=== PATIENT | female | born 1975 | race Caucasian/White ===

== ENCOUNTER 2020-10-13 09:04 | Emergency (ER) | payer SELFPAY ==
[2020-10-13 09:12] VITALS: PULSE 86; RESP 18; TEMP 37; O2SAT 97; BMI 25.9
[2020-10-13 09:22] VITALS: BP 137/81; PULSE 81; TEMP 36.9; O2SAT 97
--- NOTE | 2020-10-13 09:31 | ECG_ITS ---
[facility] Test Date: 2020-10-13 Pat Name: Tiana Toney Department: Room: Gender: Female Manager Leadership Development: : 1975 Requested By: Danial Mondragon Order Number: [id number] Reading MD: BONITA BAUER Measurements Intervals [place] Rate: 78 P: 50 WA: 87 QRS: 71 QRSD: 114 T: 63 QT: 403 QTc: 460 Interpretive Statements SINUS RHYTHM WITH SHORT WA INTERVAL MODERATE INTRAVENTRICULAR CONDUCTION DELAY [110+ ms QRS DURATION] NONSPECIFIC T-WAVE ABNORMALITY No previous ECG available for comparison Electronically Signed On 10-14-2020 18:50:44 CDT by BONITA BAUER [id number] f
--- NOTE | 2020-10-13 09:31 | XRR_ITS ---
PROCEDURE INFORMATION: Exam: XR Chest Exam date and time: 10/13/2020 9:31 AM Age: 45 years old Clinical indication: Pain; Chest pressure; Additional info: Chest pain, h/o hysterectomy TECHNIQUE: Imaging protocol: XR of the chest. Views: 1 view. COMPARISON: CR Chest 2 views* [id number] 04/29/2018 11:25 AM FINDINGS: Lungs: Unremarkable. No consolidation. Pleural spaces: Unremarkable. No pleural effusion. No pneumothorax. Heart/Mediastinum: Unremarkable. No cardiomegaly. Bones/joints: Unremarkable. XR/XR chest 1V portable [id number] IMPRESSION: No acute findings.
--- NOTE | 2020-10-13 09:34 | W.ED.DIZZY ---
HPI - Dizziness General: Chief Complaint: Dizziness Stated Complaint: weak, heart racing, light headed. Time Seen by Provider: 10/13/20 09:12 Source: patient Mode of arrival: ambulatory Limitations: no limitations History of Present Illness: HPI Narrative: Patient with complaints of generalized fatigue, chest pain, palpitations and generalized weakness at work this morning. She denies any fever or chills. She denies any dysuria. She denies any abdominal pain. She denies any syncope. No cough. Denies any nausea vomiting or diarrhea. MD elicited complaint: dizziness Timing: gradual onset Severity: mild Description: lightheadedness History of similar symptoms: No Exacerbating factors: nothing Relieving factors: nothing Associated symptoms: Reports no associated symptoms, abnormal vaginal bleeding (Patient states she did have a little bit of vaginal spotting this morning. ), chest pain, malaise and palpitations; Denies chills, fevers/chills, headache(s), nausea, short of breath, syncope or vomiting Associated neuro symptoms: Reports no associated symptoms Review of Systems Const: Reports: fatigue and malaise; Denies: fever(s) or chills Eyes: Denies: change in vision ENMT: Denies: throat pain Card: Reports: chest pain and palpitations; Denies: syncope Resp: Denies: dyspnea or wheezing GI: Denies: abdominal pain, nausea or vomiting : Denies: flank pain Musc: Denies: neck pain or back pain Skin/Breast: Denies: rash or pruritus Neuro: Denies: headache(s) Psych: Denies: anxiety Amaury/Lymph: Denies: enlarged lymph nodes Physical Exam Const: COMMON NORMALS: no acute distress, patient oriented x3, no limitations, healthy appearing, alert and well nourished GENERAL APPEARANCE: cooperative and comfortable HENMT: COMMON NORMALS: normocephalic and atraumatic HEAD & SCALP: normocephalic and atraumatic Eye: COMMON NORMALS: EOMs intact bilaterally Neck/C-Spine: COMMON NORMALS: full ROM, no lymphadenopathy, supple and no JVD Lymph: LYMPHATIC: no lymphadenopathy noted Chest: COMMONS NORMALS: normal inspection of the chest and normal palpation of entire chest wall Resp: COMMON NORMALS: normal respiratory effort, No retractions, No use of accessory muscles and clear to auscultation bilaterally AUSCULTATION: clear to auscultation bilaterally Cardio: COMMON NORMALS: no JVD, regular rate, regular rhythm and Peripheral pulses 2+ throughout RATE: regular rate RHYTHM: regular rhythm PERIPHERAL PULSES: Peripheral pulses 2+ throughout GI: COMMON NORMALS: Normal to inspection, nondistended, normoactive bowel sounds present, Soft to palpation, non-tender and No hepatosplenomegaly present PALPATION: Yes Soft to palpation and Yes No hepatosplenomegaly present : COMMON NORMALS: Yes no CVA tenderness BLADDER/KIDNEY EXAM: Yes no CVA tenderness Back/Pelvis: COMMON NORMALS: no CVA tenderness Extremity: COMMON NORMALS: normal to inspection and full ROM Neuro: COMMON NORMALS: patient oriented x3, CN's II-XII intact bilaterally, moves all extremities, no focal motor deficits and no sensory deficits noted SENSORIUM/ORIENTATION: Yes alert Psych: COMMON NORMALS: mental status grossly normal, Normal thought process present, cooperative, normal affect and speech normal SPEECH: Yes normal speech THOUGHT PROCESS: Normal thought process present Skin: COMMON NORMALS: no rashes or lesions noted and no wounds GENERAL SKIN EXAM: no rashes or lesions noted Course Vital Signs: Vital signs: Vital Signs Temperature 98.4 F 10/13/20 09:22 Pulse Rate 78 10/13/20 09:37 Respiratory Rate 18 10/13/20 09:12 Blood Pressure 111/74 10/13/20 09:37 Pulse Oximetry 97 10/13/20 09:37 MDM - Dizziness Lab Data: Attestation: I reviewed the patient's lab results. Labs: Lab Results 10/13/20 10/13/20 10/13/20 Range/Units 09:48 10:26 10:26 WBC 9.5 (4.0-10.0) 10^3/ uL RBC 4.26 (4.1-5.3) 10^6/u L Hgb 13.6 (11.5-15.3) g/dL Hct 41.1 (37.0-47.0) % MCV 96.5 (81-99) fL MCH 31.9 (28.0-34.0) pg MCHC 33.1 (30.0-36.0) g/dL RDW 13.4 (12.1-15.1) % Plt Count 255 (130-400) 10^3/c mm MPV 10.7 H (7.4-10.4) fL Neut % (Auto) 62.3 % Lymph % (Auto) 30.3 % [place] % (Auto) 5.6 % Eos % (Auto) 1.2 % Baso % (Auto) 0.4 % Neut # (Auto) 5.89 (1.8-7.7) 10^3/u L Lymph # (Auto) 2.9 (0.8-4.8) 10^3/u L [place] # (Auto) 0.5 (0.2-0.9) 10^3/u L Eos # (Auto) 0.1 (0.0-0.8) 10^3/u L Baso # (Auto) 0.0 (0.0-0.1) 10^3/u L Nucleated RBC % (a uto) 0 % Nucleated RBCs # 0.0 /100WBC Sodium 142 (136-145) mmol/L Potassium 3.9 (3.5-5.1) mmol/L Chloride 106 (98-107) mmol/L Carbon Dioxide 25 (22-29) mmol/L Anion Gap 14.9 (5-19) BUN 7 (6-20) mg/dL Creatinine 0.8 (0.5-0.9) mg/dL GFR Calculation 67.4 L (90-130) mL/min Glucose 79 (65-115) mg/dL Calculated Osmolal ity 291 (285-295) mOsm/k g Calcium 9.0 (8.5-10.5) mg/dL Total Bilirubin 0.4 (0.15-1.2) mg/dL AST 13 (0-32) U/L ALT 10 (0-33) U/L Alkaline Phosphata se 71 (35-105) IU/L Troponin T Baselin e (0-10) ng/L Total Protein 6.8 (6.6-8.7) g/dL Albumin 4.3 (3.5-5.2) g/dL Globulin 2.2 (1.3-4.6) g/dL Urine Color (Yellow) Urine Appearance (CLEAR) Urine pH (5-7) Ur Specific Gravit y (1.005-1.030) Urine Protein (Negative) Urine Glucose (UA) (Normal) Urine Ketones (Negative) Urine Blood (Negative) Urine Nitrate (Negative) Urine Bilirubin (Negative) Urine Urobilinogen (Negative) mg/dL Ur Leukocyte Aida ase (Negative) Urine RBC (0-2) /hpf Urine WBC (0-5) /hpf Ur Squamous Epith Cells (0-5) /hpf Amorphous Sediment Urine Bacteria (NONE) /hpf SARS-CoV-2 Ag (Rap id) Negative (Negative) 10/13/20 10/13/20 Range/Units 10:26 10:37 WBC (4.0-10.0) 10^3/ uL RBC (4.1-5.3) 10^6/u L Hgb (11.5-15.3) g/dL Hct (37.0-47.0) % MCV (81-99) fL MCH (28.0-34.0) pg MCHC (30.0-36.0) g/dL RDW (12.1-15.1) % Plt Count (130-400) 10^3/c mm MPV (7.4-10.4) fL Neut % (Auto) % Lymph % (Auto) % [place] % (Auto) % Eos % (Auto) % Baso % (Auto) % Neut # (Auto) (1.8-7.7) 10^3/u L Lymph # (Auto) (0.8-4.8) 10^3/u L [place] # (Auto) (0.2-0.9) 10^3/u L Eos # (Auto) (0.0-0.8) 10^3/u L Baso # (Auto) (0.0-0.1) 10^3/u L Nucleated RBC % (a uto) % Nucleated RBCs # /100WBC Sodium (136-145) mmol/L Potassium (3.5-5.1) mmol/L Chloride (98-107) mmol/L Carbon Dioxide (22-29) mmol/L Anion Gap (5-19) BUN (6-20) mg/dL Creatinine (0.5-0.9) mg/dL GFR Calculation (90-130) mL/min Glucose (65-115) mg/dL Calculated Osmolal ity (285-295) mOsm/k g Calcium (8.5-10.5) mg/dL Total Bilirubin (0.15-1.2) mg/dL AST (0-32) U/L ALT (0-33) U/L Alkaline Phosphata se (35-105) IU/L Troponin T Baselin e 6 (0-10) ng/L Total Protein (6.6-8.7) g/dL Albumin (3.5-5.2) g/dL Globulin (1.3-4.6) g/dL Urine Color Yellow (Yellow) Urine Appearance Clear (CLEAR) Urine pH 7 (5-7) Ur Specific Gravit y 1.005 (1.005-1.030) Urine Protein Neg (Negative) Urine Glucose (UA) Norm (Normal) Urine Ketones Negative (Negative) Urine Blood 2+ H (Negative) Urine Nitrate Negative (Negative) Urine Bilirubin Neg (Negative) Urine Urobilinogen Norm (Negative) mg/dL Ur Leukocyte Aida ase Negative (Negative) Urine RBC None (0-2) /hpf Urine WBC None (0-5) /hpf Ur Squamous Epith Cells 0-4 H (0-5) /hpf Amorphous Sediment Not Reportable Urine Bacteria Trace (NONE) /hpf SARS-CoV-2 Ag (Rap id) (Negative) Imaging Data^: CXR: Radiologist's impression: Patient: Renato Toney #: [id number]: 1975Acct#:[id number]/Sex: 45 / FADM Date: 10/13/20Loc: ERRoom/Bed:Attending Dr: Ordering Provider/Ordering MD: Danial Rowe MD Date of Service: 10/13/20 Procedure(s): XR chest 1V portable [id number] Accession Number(s): [id number] Report Number: [id number] PROCEDURE INFORMATION: Exam: XR Chest Exam date and time: 10/13/2020 9:31 AM Age: 45 years old Clinical indication: Pain; Chest pressure; Additional info: Chest pain, h/o hysterectomy TECHNIQUE: Imaging protocol: XR of the chest. Views: 1 view. COMPARISON: CR Chest 2 views* [id number] 04/29/2018 11:25 AM FINDINGS: Lungs: Unremarkable. No consolidation. Pleural spaces: Unremarkable. No pleural effusion. No pneumothorax. Heart/Mediastinum: Unremarkable. No cardiomegaly. Bones/joints: Unremarkable. XR/XR chest 1V portable [id number] IMPRESSION: No acute findings. Dictated By:Chucky Garner By:Chucky Garner Date/Time:10/13/20 1109 EKG Data^: EKG 1: Attestation: I personally reviewed and interpreted this EKG as follows: EKG interpretation date: 10/13/20 EKG interpretation time: 09:29 Prior EKG tracings: not available for review Interpretation: Normal sinus rhythm heart rate 78. Normal P waves, normal HI interval, normal QRS, normal ST segment, normal T waves. Normal QT interval. Normal axis. Impression normal EKG. Discharge Plan Discharge Patient Disposition: Home Clinical Impression: Dizziness, Trichomonal vaginitis Fatigue Qualifiers: Fatigue type: unspecified Qualified Code(s): R53.83 - Other fatigue UTI (urinary tract infection) Qualifiers: Urinary tract infection type: site unspecified Hematuria presence: with hematuria Qualified Code(s): N39.0 - Urinary tract infection, site not specified Condition: Stable Prescriptions: New metronidazole 500 mg tablet 500 mg PO BID 7 Days Qty: 14 RF: 0 cephalexin 500 mg capsule 500 mg PO QID 7 Days Qty: 28 RF: 0 No Action Euthyrox 25 mcg tablet 25 mcg PO DAILY RF: 0 sertraline 50 mg tablet 50 mg PO DAILY RF: 0 Discharge Orders: Discharge ED (Routine); Ordered 10/13/20 Ordered By: Danial Rowe Discharge Diet: Usual diet Discharge Activity: Resume usual activity Patient Instructions: Urinary Tract Infection in Women (ED), Fatigue (ED), Trichomoniasis - Female Activity Restrictions/Additional Instructions: Start cephalexin antibiotic and approximately 6 hours after leaving here. Take metronidazole antibiotic prior to bedtime tonight. Drink plenty of fluids. Do not drink any alcohol while on the metronidazole antibiotic as this will make you very nauseated. Rest. Coding Level of Care Code ED Chemical Equipment Repairer for Robbie Fwd Exam Comprehensive
[2020-10-13 09:37] VITALS: BP 111/74; PULSE 78; O2SAT 97
[2020-10-13 10:15] LABS: SARS Covid-2 Antigen Negative (Negative)
[2020-10-13] MEDS: aspirin 81 mg Chew Tablet 324 MG PO (10:30)
[2020-10-13 10:34] LABS: Basophils % 0.4 %; Eosinophils # 0.1 10^3/uL (0.0-0.8); Eosinophils % 1.2 %; Hematocrit 41.1 % (37.0-47.0); Hemoglobin 13.6 g/dL (11.5-15.3); Lymphocytes # 2.9 10^3/uL (0.8-4.8); Lymphocytes % 30.3 %; Mean Corpuscular HGB Conc 33.1 g/dL (30.0-36.0); Mean Corpuscular Hemoglobin 31.9 pg (28.0-34.0); Mean Corpuscular Volume 96.5 fL (81-99); Mean Platelet Volume 10.7 fL (7.4-10.4); Monocytes # 0.5 10^3/uL (0.2-0.9); Monocytes % 5.6 %; Neutrophils # 5.89 10^3/uL (1.8-7.7); Neutrophils % 62.3 %; Nucleated Red Blood Cells % 0 %; Platelet Count 255 10^3/cmm (130-400); Red Blood Count 4.26 10^6/uL (4.1-5.3); Red Cell Distribution Width 13.4 % (12.1-15.1); White Blood Count 9.5 10^3/uL (4.0-10.0)
[2020-10-13 10:52] LABS: Troponin(5th) Baseline 6 ng/L (0-10)
[2020-10-13 10:56] LABS: Albumin Level 4.3 g/dL (3.5-5.2); Alkaline Phosphatase 71 IU/L (35-105); Blood Urea Nitrogen 7 mg/dL (6-20); Carbon Dioxide 25 mmol/L (22-29); Chloride 106 mmol/L (98-107); Globulin 2.2 g/dL (1.3-4.6); Glucose 79 mg/dL (65-115); Osmolality Calculated 291 mOsm/kg (285-295); Sodium 142 mmol/L (136-145); Total Bilirubin 0.4 mg/dL (0.15-1.2)
[2020-10-13 11:14] LABS: Alanine Aminotransferase 10 U/L (0-33); Anion Gap 14.9 (5-19); Aspartate Amino Transferase 13 U/L (0-32); Glomerular Filtration Rate 67.4 mL/min (90-130); Potassium 3.9 mmol/L (3.5-5.1); Total Protein 6.8 g/dL (6.6-8.7)
[2020-10-13 11:15] LABS: Add Urine Culture? No; Add Urine Microscopic? YES; Bacteria Urine TRACE /hpf; Bilirubin Urine Neg (Negative); Blood Urine 2+ (Negative); Glucose Urine UA Norm (Normal); Ketones Urine Negative (Negative); Leukocyte Esterase Urine Negative (Negative); Nitrate Urine Negative (Negative); Protein Urine Neg (Negative); Specific Gravity, Urine 1.005 (1.005-1.030); Squamous Epithelial Cell Urine 0-4 /hpf (0-5); Urine Appearance Clear (CLEAR); Urine Color Yellow (Yellow); Urobilinogen Urine Norm (Negative); pH Urine 7 (5-7)
[2020-10-13] MEDS: metroNIDAZOLE 500 MG Tablet PO (11:33)
[2020-10-13] MEDS: cephALEXin 500 mg Capsule PO (11:34)
[2020-10-13 11:47] VITALS: BP 119/77; PULSE 69; RESP 18; O2SAT 97
== END 2020-10-13 11:48 | disposition home or self-care (01) ==
PROVIDERS: Emergency Provider Family Medicine
DX: R42 Dizziness and giddiness (principal); R53.83 Other fatigue; N39.0 Urinary tract infection, site not specified; A59.01 Trichomonal vulvovaginitis; Z20.822 Contact with and (suspected) exposure to COVID-19
CPT/HCPCS: 71045; 80053; 81001; 84484; 85025; 87426; 93005; 99284

== ENCOUNTER 2020-12-28 12:26 | Emergency (ER) | payer OTHER, SELFPAY ==
[2020-12-28 13:02] VITALS: BP 100/42; PULSE 81; RESP 16; TEMP 36.8; O2SAT 98; BMI 24.2
--- NOTE | 2020-12-28 13:44 | ED_ITS ---
HPI - COVID General: Chief Complaint: COVID symptoms Stated Complaint: Fever, body aches Time Seen by Provider: 12/28/20 13:44 Triage information: Has fever, cough or shortness of breath . No known COVID + exposure last 14 days History of Present Illness: HPI Narrative: Ms. Reynolds is a 45-year-old lady with reported history of hypothyroidism and elevated serum creatinine who presents emergency department due to Covid-like symptoms. Symptom onset was 3 or 4 days ago and subacute. She endorses cough, shortness of breath, generalized malaise, muscle aches, pains, and increased fatigue. She attempted to get a Covid test at [facility] however they were closed which prompted her to come to the emergency department. Overall the course of symptoms has been worsening. The intensity is moderate to severe. She denies known sick contacts. No other specific changes in health, exacerbating, or alleviating factors. COVID Results: SARS-CoV-2 Antigen (Rapid) Positive (Negative) H 12/28/20 14:45 12/28/20 SARS-CoV-2 RNA (RT-PCR) Pending 12/28/20 14:45 12/28/20 Review of Systems General: Reports: 10 or more systems reviewed and unremarkable except in HPI and below Physical Exam Narrative: EXAM NARRATIVE: GENERAL/CONSTITUTIONAL -mildly ill-appearing. No acute distress. Eyes - PERRL, no conjunctival injection ENMT - Atraumatic external nose and ears. Moist mucous membranes NECK - supple. trachea midline CARDIOVASCULAR - regular rate and rhythm. Peripheral pulses 2+ and equal RESPIRATORY -coarse to auscultation bilaterally. No retractions or accessory muscle use. ABDOMEN/GI - Nontender/Nondistended. No tenderness to percussion or evidence of peritonitis MSK - Extremities without obvious deformity. Generalized myalgias to p alpation. SKIN - Warm, Dry NEURO - alert and appropriately oriented. strength and sensation intact. Moves all extremities equally. PSYCH - Appropriate mood and affect Course ED course: - Patient was seen and evaluated by me at bedside - Patient placed on cardiac monitors, IV access obtained - Initial evaluation notable for mildly ill appearance, no acute distress. -Symptom treatment ordered - Labs notable for positive Covid, negative procalcitonin - Imaging notable for no lobar consolidation - Upon serial reexamination after treatment the patient was improved - Based on patient history, evaluation, labs, and imaging as interpreted the most likely cause of the patient's condition is COVID-19 - The results of ED evaluation were discussed with the patient including prescriptions and/or symptomatic cares (if applicable) including appropriate and responsible use, followup plan, and return precautions. The patient verbalized understanding and felt safe for discharge. - Patient discharged in satisfactory condition. Vital Signs: Vital signs: Vital Signs Temperature 98.3 F 12/28/20 13:02 Pulse Rate 71 12/28/20 16:47 Respiratory Rate 17 12/28/20 16:47 Blood Pressure 115/59 12/28/20 16:47 Pulse Oximetry 99 12/28/20 16:47 MDM - COVID Medical Records: Attestation: I reviewed the patient's medical records. Lab Data: Attestation: I reviewed the patient's lab results. Labs: Lab Results 12/28/20 12/28/20 12/28/20 Range/Units 14:45 15:15 15:15 WBC 4.5 (4.0-10.0) 10^3/ uL RBC 4.25 (4.1-5.3) 10^6/u L Hgb 14.0 (11.5-15.3) g/dL Hct 42.1 (37.0-47.0) % MCV 99.1 H (81-99) fl MCH 32.9 (28.0-34.0) pg MCHC 33.3 (30.0-36.0) g/dL RDW 13.9 (12.1-15.1) % Plt Count 150 (130-400) 10^3/c mm MPV 11.5 H (7.4-10.4) fL Neut % (Auto) 59.0 % Lymph % (Auto) 28.9 % [place] % (Auto) 10.8 % Eos % (Auto) 0.7 % Baso % (Auto) 0.4 % Neut # (Auto) 2.67 (1.8-7.7) 10^3/u L Lymph # (Auto) 1.3 (0.8-4.8) 10^3/u L [place] # (Auto) 0.5 (0.2-0.9) 10^3/u L Eos # (Auto) 0.0 (0.0-0.8) 10^3/u L Baso # (Auto) 0.0 (0.0-0.1) 10^3/u L Nucleated RBC % (a uto) 0 % Nucleated RBCs # 0.0 /100WBC Sodium 139 (136-145) mmol/L Potassium 3.8 (3.5-5.1) mmol/L Chloride 102 (98-107) mmol/L Carbon Dioxide 25 (22-29) mmol/L Anion Gap 15.8 (5-19) BUN 7 (6-20) mg/dL Creatinine 0.7 (0.5-0.9) mg/dL GFR Calculation 90.1 (90-130) mL/min Glucose 82 (65-115) mg/dL Calculated Osmolal ity 285 (285-295) mOsm/k g Lactic Acid (0.5-2.2) mmol/L Calcium 8.7 (8.5-10.5) mg/dL Total Bilirubin 0.2 (0.15-1.2) mg/dL AST 18 (0-32) U/L ALT 11 (0-33) U/L Alkaline Phosphata se 64 (35-105) IU/L C-Reactive Protein 1.1 (0.0-4.9) mg/L Total Protein 6.7 (6.6-8.7) g/dL Albumin 4.2 (3.5-5.2) g/dL Globulin 2.5 (1.3-4.6) g/dL Procalcitonin 0.04 (0-0.5) ng/mL TSH 2.69 (0.27-4.20) uIU/ mL Urine Color (Yellow) Urine Appearance (CLEAR) Urine pH (5-7) Ur Specific Gravit y (1.005-1.030) Urine Protein (Negative) Urine Glucose (UA) (Normal) Urine Ketones (Negative) Urine Blood (Negative) Urine Nitrate (Negative) Urine Bilirubin (Negative) Urine Urobilinogen (Negative) mg/dL Ur Leukocyte Aida ase (Negative) Urine RBC (0-2) /hpf Urine WBC (0-5) /hpf Ur Squamous Epith Cells (0-5) /hpf Amorphous Sediment Urine Bacteria (NONE) /hpf SARS-CoV-2 Ag (Rap id) Positive H (Negative) 12/28/20 12/28/20 Range/Units 15:15 15:20 WBC (4.0-10.0) 10^3/ uL RBC (4.1-5.3) 10^6/u L Hgb (11.5-15.3) g/dL Hct (37.0-47.0) % MCV (81-99) fl MCH (28.0-34.0) pg MCHC (30.0-36.0) g/dL RDW (12.1-15.1) % Plt Count (130-400) 10^3/c mm MPV (7.4-10.4) fL Neut % (Auto) % Lymph % (Auto) % [place] % (Auto) % Eos % (Auto) % Baso % (Auto) % Neut # (Auto) (1.8-7.7) 10^3/u L Lymph # (Auto) (0.8-4.8) 10^3/u L [place] # (Auto) (0.2-0.9) 10^3/u L Eos # (Auto) (0.0-0.8) 10^3/u L Baso # (Auto) (0.0-0.1) 10^3/u L Nucleated RBC % (a uto) % Nucleated RBCs # /100WBC Sodium (136-145) mmol/L Potassium (3.5-5.1) mmol/L Chloride (98-107) mmol/L Carbon Dioxide (22-29) mmol/L Anion Gap (5-19) BUN (6-20) mg/dL Creatinine (0.5-0.9) mg/dL GFR Calculation (90-130) mL/min Glucose (65-115) mg/dL Calculated Osmolal ity (285-295) mOsm/k g Lactic Acid 0.6 (0.5-2.2) mmol/L Calcium (8.5-10.5) mg/dL Total Bilirubin (0.15-1.2) mg/dL AST (0-32) U/L ALT (0-33) U/L Alkaline Phosphata se (35-105) IU/L C-Reactive Protein (0.0-4.9) mg/L Total Protein (6.6-8.7) g/dL Albumin (3.5-5.2) g/dL Globulin (1.3-4.6) g/dL Procalcitonin (0-0.5) ng/mL TSH (0.27-4.20) uIU/ mL Urine Color Straw (Yellow) Urine Appearance Clear (CLEAR) Urine pH 5 (5-7) Ur Specific Gravit y 1.010 (1.005-1.030) Urine Protein Neg (Negative) Urine Glucose (UA) Norm (Normal) Urine Ketones Negative (Negative) Urine Blood 2+ H (Negative) Urine Nitrate Negative (Negative) Urine Bilirubin Neg (Negative) Urine Urobilinogen Norm (Negative) mg/dL Ur Leukocyte Aida ase Negative (Negative) Urine RBC 0-4 H (0-2) /hpf Urine WBC 0-4 H (0-5) /hpf Ur Squamous Epith Cells 0-4 H (0-5) /hpf Amorphous Sediment Not Reportable Urine Bacteria 1+ H (NONE) /hpf SARS-CoV-2 Ag (Rap id) (Negative) EKG Data: EKG 1: Attestation: I personally reviewed and interpreted this EKG as follows: EKG interpretation date: 12/28/20 EKG interpretation time: 14:50 Interpretation: Twelve-lead EKG shows a regular sinus rhythm at a rate of 71. [place] interval 146, QRS duration 97, QTc 427. Normal axis. Interpretation: Sinus rhythm COVID Results: SARS-CoV-2 Antigen (Rapid) Positive (Negative) H 12/28/20 14:45 12/28/20 SARS-CoV-2 RNA (RT-PCR) Pending 12/28/20 14:45 12/28/20 Discharge Plan Discharge Patient Disposition: Home Clinical Impression: COVID-19 Condition: Stable Prescriptions: No Action Euthyrox 25 mcg tablet 25 mcg PO DAILY RF: 0 sertraline 50 mg tablet 50 mg PO DAILY RF: 0 Discharge Orders: Discharge ED (Routine); Ordered 12/28/20 Ordered By: Mu Medina Other Ambulatory Orders: Request for [facility] (Routine) Timeframe: 1 Day Facility: [facility] - Location[facility] Ordered By: Mu Medina Discharge Diet: Usual diet Discharge Activity: Resume usual activity Patient Instructions: Viral Pneumonia (ED) Activity Restrictions/Additional Instructions: Thank you for visiting the emergency department. You were seen and evaluated for Covid-like symptoms. You are Covid positive. Please ensure that you are staying hydrated. You may use [id number] medications however please ensure that you are following the recommended daily dosage and please keep in mind that many namebrand medications contain the same active ingredients. Please self quarantine. Please return to the emergency department for reasons discussed or anything else that you are concerned about and feel needs emergency department evaluation. Coding Level of Care Code ED Ladies Locker Room Attendant for Robbie Dobbins
--- NOTE | 2020-12-28 14:11 | ECG_ITS ---
Test Date: 2020-12-28 Pat Name: Tiana Toney Department: Room: Gender: Female Customs And Border Protection Inspector: : 1975 Requested By: Mu Medina Order Number: [id number] Hemal MD: Milo Barton M.D. Measurements Intervals [place] Rate: 71 P: 68 OK: 146 QRS: 76 QRSD: 97 T: 69 QT: 404 QTc: 441 Interpretive Statements SINUS RHYTHM Compared to ECG 10/13/2020 09:28:15 Short OK interval no longer present Intraventricular conduction delay no longer present T-wave abnormality no longer present Electronically Signed On 12-29-2020 18:10:15 CDT by Milo Barton M.D. [id number]
--- NOTE | 2020-12-28 14:11 | XRR_ITS ---
PROCEDURE INFORMATION: Exam: XR Chest Exam date and time: 12/28/2020 2:11 PM Age: 45 years old Clinical indication: Cough and dyspnea TECHNIQUE: Imaging protocol: XR of the chest. Views: 1 view. COMPARISON: CR XR chest 1V portable [id number] 10/13/2020 9:48 AM FINDINGS: Lungs: Hyperinflated lungs. No consolidation. Pleural spaces: Unremarkable. No pleural effusion. No pneumothorax. Heart/Mediastinum: Unremarkable. No cardiomegaly. Bones/joints: Unremarkable. XR/XR chest 1V portable [id number] IMPRESSION: Stable exam, no acute findings.
[2020-12-28] MEDS: acetaminophen 325 mg Tablet 650 MG PO (14:38)
[2020-12-28 15:00] VITALS: O2SAT 99
[2020-12-28] MEDS: sodium chloride 0.9% 500 ML IV (15:10)
[2020-12-28 15:27] LABS: SARS Covid-2 Antigen Positive (Negative)
[2020-12-28 15:30] VITALS: BP 104/54; PULSE 75; RESP 16; O2SAT 99
[2020-12-28 15:33] LABS: Basophils % 0.4 %; Eosinophils % 0.7 %; Hematocrit 42.1 % (37.0-47.0); Lymphocytes # 1.3 10^3/uL (0.8-4.8); Lymphocytes % 28.9 %; Mean Corpuscular HGB Conc 33.3 g/dL (30.0-36.0); Mean Corpuscular Hemoglobin 32.9 pg (28.0-34.0); Mean Corpuscular Volume 99.1 fl (81-99); Mean Platelet Volume 11.5 fL (7.4-10.4); Monocytes # 0.5 10^3/uL (0.2-0.9); Monocytes % 10.8 %; Neutrophils # 2.67 10^3/uL (1.8-7.7); Nucleated Red Blood Cells % 0 %; Platelet Count 150 10^3/cmm (130-400); Red Blood Count 4.25 10^6/uL (4.1-5.3); Red Cell Distribution Width 13.9 % (12.1-15.1); White Blood Count 4.5 10^3/uL (4.0-10.0)
[2020-12-28 15:53] LABS: Lactic Sepsis W/Reflex 0.6 mmol/L (0.5-2.2)
[2020-12-28 15:57] LABS: Add Urine Microscopic? YES; Bilirubin Urine Neg (Negative); Blood Urine 2+ (Negative); Glucose Urine UA Norm (Normal); Ketones Urine Negative (Negative); Leukocyte Esterase Urine Negative (Negative); Nitrate Urine Negative (Negative); Protein Urine Neg (Negative); Urine Appearance Clear (CLEAR); Urine Color Straw (Yellow); Urobilinogen Urine Norm (Negative); pH Urine 5 (5-7)
[2020-12-28 15:58] LABS: Add Urine Culture? No; Bacteria Urine 1+ /hpf; RBC Urine 0-4 /hpf (0-2); Squamous Epithelial Cell Urine 0-4 /hpf (0-5); WBC Urine 0-4 /hpf (0-5)
[2020-12-28 16:03] LABS: Procalcitonin 0.04 ng/mL (0-0.5); Thyroid Stimulating Hormone 2.69 uIU/mL (0.27-4.20)
[2020-12-28 16:14] LABS: Alanine Aminotransferase 11 U/L (0-33); Albumin Level 4.2 g/dL (3.5-5.2); Alkaline Phosphatase 64 IU/L (35-105); Anion Gap 15.8 (5-19); Aspartate Amino Transferase 18 U/L (0-32); Blood Urea Nitrogen 7 mg/dL (6-20); C Reactive Protein 1.1 mg/L (0.0-4.9); Calcium 8.7 mg/dL (8.5-10.5); Carbon Dioxide 25 mmol/L (22-29); Chloride 102 mmol/L (98-107); Globulin 2.5 g/dL (1.3-4.6); Glomerular Filtration Rate 90.1 mL/min (90-130); Glucose 82 mg/dL (65-115); Osmolality Calculated 285 mOsm/kg (285-295); Potassium 3.8 mmol/L (3.5-5.1); Sodium 139 mmol/L (136-145); Total Bilirubin 0.2 mg/dL (0.15-1.2); Total Protein 6.7 g/dL (6.6-8.7)
[2020-12-28 16:47] VITALS: BP 115/59; PULSE 71; RESP 17; O2SAT 99
[2020-12-29 17:07] LABS: Quest SARS-CoV-2 RNA DETECTED (NOT DETECTED)
== END 2020-12-28 16:40 | disposition home or self-care (01) ==
PROVIDERS: Emergency Provider Emergency Medicine
DX: U07.1 COVID-19 (principal)
CPT/HCPCS: 71045; 80053; 81001; 83605; 84145; 84443; 85025; 86140; 87426; 87635; 93005; 96360; 99284; J7040

== ENCOUNTER 2022-05-04 12:29 | Outpatient (CLI) | payer OTHER, SELFPAY ==
--- NOTE | 2022-05-04 12:40 | XR_ITS ---
WS: [id number] RIGHT SHOULDER: 2 VIEW(S) TECHNIQUE: Internal and external rotation. HISTORY: right shoulder pain COMPARISON: Chest radiograph 12/28/2020 New since the prior chest radiograph is osteolysis of the distal RIGHT clavicle. There is loss of the normal cortex with small erosions. The adjacent acromion appears negative. No additional abnormality . Lung apex is clear. XR/XR shoulder RT min 2V* [id number] IMPRESSION: Osteolysis distal clavicle. No involvement of the acromion. This may be posttra umatic osteolysis. Additional etiologies are rheumatoid arthritis or infection. Considered.
== END 2022-05-04 12:30 | disposition home or self-care (01) ==
LOC: RAD 12:33
PROVIDERS: PCP Clinical Nurse Specialist Adult Health; Visit Provider Clinical Nurse Specialist Adult Health
DX: M89.511 Osteolysis, right shoulder (principal); M25.511 Pain in right shoulder
CPT/HCPCS: 73030

== ENCOUNTER 2022-06-10 13:18 | Outpatient (CLI) | payer OTHER, SELFPAY ==
--- NOTE | 2022-06-10 10:15 | MR_ITS ---
WS: [id number] EXAMINATION: MR shoulder RT wo con* [id number] ORDER DATE: 06/10/2022 3:30 PM COMPARISON: None. HISTORY: abnormal xray after an injury CONTRAST: Radiograph May 04, 2022 TECHNIQUE: Axial T2 STAR, coronal proton density fat sat, sagittal T2 fat sat, axial proton density f at sat, coronal T2 fat sat, and coronal T1 performed. After contrast, axial T1 fat sat, coronal T1 fa t sat, and sagittal T1 fat sat were performed. Sagittal proton-density not performed due to patient's pain level. Some images degraded by motion artifact. FINDINGS: Slight osteolysis distal RIGHT clavicle seen on the recent radiograph. Diffuse edema on today's MRI w ith fluid in the AC joint. Moderate downsloping of the acromion with subacromial spurring. Tiny subac romial fluid. Normal bone marrow signal in the humerus and glenoid. Normal biceps tendon in the bicip ital groove. Intra-articular biceps tendon appears intact. Normal distal supraspinatus. Normal infraspinatus. Norm al teres minor. Normal subscapularis. Impingement on the distal supraspinatus with slight tendinopath y. No acute appearing rotator cuff tears. MR/MR shoulder RT wo con* [id number] IMPRESSION: 1. Osteolysis involving the distal clavicle as seen on the recent radiograph. Diffuse edema in the distal clavicle with a small AC joint effusion. Findings m ay be posttraumatic, inflammatory, or infectious in etiology. Recommend clinica l correlation with history of trauma 2. Mild narrowing of the subacromial space impingement on the distal supraspin atus. Mild tendinopathy distal supraspinatus. No acute appearing rotator cuff t ears. 3. Normal biceps tendon in the bicipital groove. 4. No other remarkable findings.
== END 2022-06-10 13:19 | disposition home or self-care (01) ==
LOC: RAD 13:21
PROVIDERS: PCP Clinical Nurse Specialist Adult Health; Visit Provider Clinical Nurse Specialist Adult Health
DX: M89.511 Osteolysis, right shoulder (principal)
CPT/HCPCS: 73221